=== PATIENT | male | born 1975 | race Caucasian/White ===

== ENCOUNTER 2018-03-03 21:49 | Inpatient (IN) | payer OTHER ==
[~2018-03-03] VITALS: Ht 188 cm; Wt 127.0 kg
[~2018-03-03 21:49] MED LIST: AMARYL4 MG PO; APAP650 PO; ASPIRIN EC81 M1; BENTYL 10 MG CA10 M1 PO; BENTYL 20 MG TA20 M1 PO; CITRATE OF MAG296 ML PO; COLESTID1 GM PO; EXCEDRIN MIGRA1 EAC1 PO; GLUCOPHAGE XR500 MG PO; GLYBURIDE 2.52.5 MG PO; HYDROCODONE-APA1 TA1 PO; HYDROXYZINE HCL25 M1 PO; JANUMET 50-1,01 EACH PO; JANUMET XR 1001 EACH; JANUMET XR 50-1 EAC1 PO; LIPITOR; LIPITOR40 MG PO; LISINOPRIL10 MG PO; LISINOPRIL20 MG PO; METFORMIN HCL500 MG PO; METOPROLOL; MIRALAX17 GM PO; NEURONTIN 300300 M1 PO; NICOTINE TRANSD21 M1 TRANSDERM; NORCO 5-325 TA1 EAC1 PO; NORCO 5-325 TA1 EACH PO; NORVASC5 MG PO; OXYCODONE HCL 55 MG PO; PHENERGAN 25 MG25 M1 PO; PROTONIX40 M1 PO; PROZAC 20 MG20 MG; PROZAC20 MG PO; QUINAPRIL; SEROQUEL 50 MG50 MG PO; TORADOL 10 MG T10 MG PO; TRAZODONE HCL100 MG PO; VITAMIN D 5050000 I1 PO; ZOFRAN ODT4 MG PO
[2018-03-03 22:02] VITALS: BP 214/114
[2018-03-03 22:30] LABS: ABSOLUTE BASOPHILS 0.1 thou/uL (0.0-0.2); ABSOLUTE EOSINOPHILS 0.1 thou/uL (0.0-0.7); ABSOLUTE LYMPHOCYTES 1.8 thou/uL (0.8-5.3); ABSOLUTE MONOCYTES 0.7 thou/uL (0.0-1.2); ABSOLUTE NEUTROPHILS 4.7 thou/uL (1.6-8.1); HEMATOCRIT 44.7 % (42.0-52.0); HEMOGLOBIN 15.4 gm/dL (14.0-18.0); LYMPHOCYTES 24.8 %; MCH 31.1 pg (26.0-34.0); MCHC 34.4 g/dL (28.0-37.0); MCV 90.5 fL (80.0-100.0); MONOCYTES 8.7 %; MPV 8.6 fl. (7.2-11.1); NUCLEATED RBCS 0 /100WBC; PLATELET COUNT* 228 thou/uL (150-400); POLYS 63.5 %; RBC 4.93 mil/uL (4.50-6.00); RDW-CV 14.4 % (10.5-14.5); WBC 7.5 thou/uL (4.0-11.0)
[2018-03-03 22:36] LABS: ANION GAP 9 mmol/L (7-16); BUN 9 mg/dL (7-18); CALCIUM 8.5 mg/dL (8.5-10.1); CHLORIDE 102 mmol/L (98-107); CO2 26 mmol/L (21-32); CREATININE 0.9 mg/dL (0.6-1.3); GLUCOSE 208 mg/dL (70-99); SODIUM 137 mmol/L (136-145)
[2018-03-03 22:37] LABS: APTT 31.9 Seconds (25.0-31.3); PROTIME 10.5 Seconds (9.20-11.50)
[2018-03-03 22:42] LABS: POTASSIUM 2.9 mmol/L (3.5-5.1)
[2018-03-03 22:46] LABS: ALBUMIN 3.4 g/dL (3.4-5.0); ALKALINE PHOSPHATASE 98 U/L (46-116); LIPASE 1053 U/L (73-393); NT-PRO BRAIN NAT PEPTIDE 202 pg/mL (<300); SGOT 17 U/L (15-37); SGPT 28 U/L (30-65); TOTAL BILIRUBIN 0.6 mg/dL (<0.1-1.0); TOTAL PROTEIN 7.2 g/dL (6.4-8.2); TROPONIN-I LEVEL <0.06 ng/mL (<0.06)
[2018-03-04] LABS: URINE BILIRUBIN NEGATIVE (Negative); URINE BLOOD NEGATIVE (Negative); URINE CLARITY CLEAR; URINE COLOR YELLOW; URINE GLUCOSE-RANDOM 2+ (Negative); URINE KETONES NEGATIVE (Negative); URINE LEUKOCYTES-REFLEX NEGATIVE (Negative); URINE NITRITE-REFLEX NEGATIVE (Negative); URINE PROTEIN NEGATIVE (Negative); URINE SPECIFIC GRAVITY <= 1.005 (1.005-1.030); URINE UROBILINOGEN 0.2 E.U./dl (0.2-1.0)
[2018-03-04 00:27] LABS: AMP/METHAMP Negative (Negative); BARBITURATES Negative (Negative); BENZODIAZEPINES Negative (Negative); COCAINE Negative (Negative); METHADONE Negative (Negative); OPIATES POSITIVE (Negative); PCP Negative (Negative); THC Negative (Negative)
[2018-03-04 01:44] VITALS: BP 200/100
--- NOTE | 2018-03-04 06:47 | NUR ---
PATIENT ARRIVED ON FLOOR FROM ER ABOUT 0200. PATIENT ADMISSION HISTORY AND ASSESSMENT COMPLETED CHARTED. IV FLUIDS WERE STARTED AT 150 ML/HR. PATIENT WAS GIVEN PAIN AND NAUSEA MEDICINE ONCE THIS SHIFT. WILL CONTINUE TO MONITOR.
[2018-03-04 07:50] VITALS: BP 102/57
--- NOTE | 2018-03-04 13:55 | NUR ---
Nutrition: Pt assessed for DX of pancreatitis - acute on chronic. H/o pancreatitis, DM, HTN, GERD. Labs: lipase 1053, alb 3.4, BG 208-113. Pt has had some nausea w/o vomiting. Wt: 280#. NPO. RD will follow for diet advancement and tolerance, labs. GOALS: advance diet to goal of Low Fat when pt able. Mild nutrition risk at this time. Will follow up 03/09/18.
--- NOTE | 2018-03-04 16:33 | EKG ---
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 : 1975 Requested By: Ehsan Hall Order Number: [id number] MD: Corby Wright Measurements Intervals [place] Rate: 67 P: 37 DC: 170 QRS: 4 QRSD: 108 T: 149 QT: 399 QTc: 422 Interpretive Statements Sinus rhythm Probable LVH with secondary repol abnrm Inferior infarct, old Baseline wander in lead(s) V6 Compared to ECG 09/04/2016 12:33:45 Myocardial infarct finding now present Sinus bradycardia no longer present Electronically Signed On 03-04-2018 16:33:18 CDT by Corby Wright [email or web address] <ELECTRONICALLY SIGNED> By: Corby Wrgiht MD, FACC 03/04/18 1633 30 30 Corby Wright MD, FAC /EPI
[2018-03-04 16:43] VITALS: BP 133/68
--- NOTE | 2018-03-04 16:53 | NUR ---
PATIENT GIVEN PRN FENTANYL AND ZOFRAN X 2 THIS SHIFT WITH GOOD RELIEF NOTED. IVF REMAINS INFUSING AT 150MLS/HR. UP AD JUAN. CLEAR LIQUID DIET ORDERED, TOLERATING. NPO AFTER MIDNIGHT FOR GI PROCEDURE TOMORROW. PATIENT AWARE OF PLAN OF CARE.
[2018-03-04 20:30] VITALS: BP 157/83
[2018-03-05 04:49] LABS: ALBUMIN 2.6 g/dL (3.4-5.0); ALKALINE PHOSPHATASE 81 U/L (46-116); ANION GAP 5 mmol/L (7-16); BUN 7 mg/dL (7-18); CALCIUM 7.9 mg/dL (8.5-10.1); CHLORIDE 108 mmol/L (98-107); CHOLESTEROL 151 mg/dL (<200); CO2 26 mmol/L (21-32); CREATININE 0.7 mg/dL (0.6-1.3); GLUCOSE 108 mg/dL (70-99); HDL CHOLESTEROL 21 mg/dL (>40); LDL CHOLESTEROL 106 mg/dL (<100); MAGNESIUM 1.8 mg/dL (1.8-2.4); POTASSIUM 3.4 mmol/L (3.5-5.1); SGOT 17 U/L (15-37); SGPT 20 U/L (30-65); SODIUM 139 mmol/L (136-145); TC:HDL 7.2 Ratio (Not establshd); TOTAL BILIRUBIN 0.5 mg/dL (<0.1-1.0); TOTAL PROTEIN 5.5 g/dL (6.4-8.2); TRIGLYCERIDE 124 mg/dL (<150); VLDL 25 mg/dL (<40)
[2018-03-05 05:32] LABS: SERUM ASSESSMENT CLEAR
--- NOTE | 2018-03-05 06:27 | NUR ---
PATIENT SLEPT MOST OF THE NIGHT. PATIENT WAS GIVEN PAIN MEDICINE TWICE THIS SHIFT. IV FLUIDS CONTINUE AT 150 ML/HR. PATIENT HAS BEEN NPO SINCE MIDNIGHT INCASE OF A PROCEDURE TODAY. WILL CONTINUE TO MONITOR.
[2018-03-05 09:56] VITALS: BP 150/90
--- NOTE | 2018-03-05 12:29 | NUR ---
SW met with pt to complete initial assessment, introduce self, and SW role. Pt alert, oriented. Pt lives at home with his . SW discussed insurance status with pt and he said that he had been denied for Medicaid when SW said that SW read that pt Medicaid was pending in August. SW provided resources/referrals for primary care doctor and other resources for basic and financial needs. Pt has a cane if needed. Pt had previously been connected with [facility] and [facility]. Pt did not express any other dc needs at this time. SW to continue to follow.
[2018-03-05 16:18] VITALS: BP 163/89
--- NOTE | 2018-03-05 18:30 | NUR ---
PATIENT HAS BEEN ALERT AND ORIENTED TODAY, VERY PLEASANT. UP AD JUAN IN ROOM. SOME PAIN TODAY THAT IS WELL CONTROLLED WITH IV PAIN MEDICATIONS. VITAL SIGNS HAVE BEEN STABLE ON ROOM AIR. TOLERATED DINNER WITH SOME PAIN AND NAUSEA BUT US TOLERABLE PER PATIENT. CALL LIGHT IS IN REACH, WILL CONTINUE TO MONITOR.
[2018-03-05 19:30] VITALS: BP 176/89
--- NOTE | 2018-03-06 04:43 | NUR ---
PATIENT REMAINS ALERT AND ORIENTED X4 THROUGHOUT SHIFT. VITAL SIGNS STABLE ON ROOM AIR. IV PATENT IN THE RIGHT AC INFUSING PER ORDERS. PAIN AND NAUSEA MANAGED WITH IV MEDICATION. TOLERATING DIET. ASSESSMENT COMPLETE CHARTED. RESTING COMFORTABLY THROUGHOUT THE NIGHT. TRANSFERS AD JUAN TO THE RESTOOM. REPOSITIONING SELF IN BED. HOURLY ROUNDING COMPLETE. CALL LIGHT WITHIN REACH. NURSING WILL CONTINUE TO MONITOR.
[2018-03-06 08:00] VITALS: BP 171/78
[2018-03-06] MEDS ORDERED: WELLBUTRIN 75 M75 M1 PO (09:04)
[2018-03-06 11:07] VITALS: BP 171/78
--- NOTE | 2018-03-06 14:10 | NUR ---
ASSUMED CARE THIS AM, NO DISTRESS NOTED, VSS, DENIES PAIN, SEE ASSESSMENT FOR DETAILS. DISCHARGE ORDERS RECEIVED, IV ACCESS REMOVED WITHOUT INCIDENT. DISCHARGE INSTRUCTIONS, F/U APPTS, PRESCRIPTIONS DISCUSSED WITH AND GIVEN TO PATIENT, DENIES QUESTIONS AT THIS TIME. PERSONAL EFFECTS GATHERED, ACCOUNTED FOR, IN COMPANY OF PATIENT, TRANSPORTED TO MAIN ENTRANCE VIA WHEELCHAIR IN STABLE CONDITION.
[2018-03-09 06:05] LABS: IgG 721 mg/dL (700-1600)
--- NOTE | 2018-03-22 11:23 | CON ---
[address] [address] CONSULTATION Name: BACILIO MILLER Room: [address] IN .R.#: [id number] Admission: 03/04/18 Attend Phys: Jam Smith MD Discharge: 03/06/18 Date of : 77 Report #: [id number] THIS REPORT FOR: //name// CC: Jam Smith [facility] physician/PCP DATE OF SERVICE: 03/04/2018 HISTORY OF PRESENT ILLNESS: The patient is a pleasant 42-year-old male with past medical history significant for recurrent episodes of pancreatitis, who is presenting with an episode of acute onset abdominal pain. The patient reports the pain started on Thursday. The patient reports the pain is stabbing, sharp in nature and severe in intensity. The pain is constant and interrupted by intermittent exacerbations. Usually the pain is exacerbated by eating or drinking. The patient reports nausea, but denies vomiting. The patient reports that he has had one episode of pancreatitis every year for the last 4-5 years. He had cholecystectomy performed 2 years back and since then, has had two more episodes of pancreatitis. PAST MEDICAL HISTORY: The patient has history of diabetes, hypertension, hyperlipidemia. PAST SURGICAL HISTORY: He had cholecystectomy two years back, had coronary artery bypass in the past and 2 cardiac stents placed. FAMILY HISTORY: There is no family history of pancreatic or GI related malignancies. SOCIAL HISTORY: The patient reports smoking 1-1/2 to 2 packs a day for the last 25 years. Denies alcohol or recreational drug use. REVIEW OF SYSTEMS: Comprehensive 10-point review of systems is negative except for what was mentioned above. PHYSICAL EXAMINATION: VITAL SIGNS: Temperature 37.1, pulse rate 84, respirations 20, blood pressure 133/68. GENERAL: The patient is alert, awake, oriented x 3. HEENT: Pupils are equal, round, reactive to light and accommodation. Mucous membranes are moist. There is no congestion. LUNGS: Clear to auscultation bilaterally. NECK: Supple. There is no supraclavicular lymphadenopathy. ABDOMEN: Soft. There is tenderness in the right upper quadrant and epigastric region. Bowel sounds are present. EXTREMITIES: Warm, well perfused. NEUROLOGIC: [place] [address] CONSULTATION Name: BACILIO MILLER Room: [address]#: [id number] Admission: 03/04/18 Attend Phys: Jam Smtih MD Discharge: 03/06/18 Date of : 77 Report #: [id number] SKIN: Warm and dry. LABORATORY DATA: Sodium 137, potassium 3.5, chloride 102, bicarbonate 26, BUN 9, creatinine 0.9, total bilirubin 0.6, AST 17, ALT 28, alkaline phosphatase 98, lipase 1053. Abdomen and pelvis CT, stranding around the pancreas consistent with pancreatitis. ASSESSMENT AND PLAN: This is a very pleasant 42-year-old male presenting with recurrent episodes of acute pancreatitis at least 2 since his last cholecystectomy. I would get IgG4 levels to rule out IgG4 related pancreatitis. An EUS would be recommended 4 weeks from today to evaluate the pancreas. Otherwise, continue conservative management of mild acute pancreatitis without any local complications. <ELECTRONICALLY SIGNED> By: Donald Barrientos MD 03/22/18 1123 1737 0047Donald Barrientos MD /nt
== END 2018-03-06 14:12 | disposition home or self-care (01) | DRG 439 ==
LOC: M.ERS 21:49 → M.3W 03-04 00:23 → M.TBA-ER 03-04 00:23 → M.3W 03-04 01:46
PROVIDERS: Internal Medicine; Internal Medicine Gastroenterology; Nurse Practitioner Family; ADMIT Internal Medicine
DX: K85.90 Acute pancreatitis without necrosis or infection, unspecified (principal); I50.32 Chronic diastolic (congestive) heart failure; K86.1 Other chronic pancreatitis; K21.9 Gastro-esophageal reflux disease without esophagitis; I11.0 Hypertensive heart disease with heart failure; E78.00 Pure hypercholesterolemia, unspecified; M16.12 Unilateral primary osteoarthritis, left hip; M17.12 Unilateral primary osteoarthritis, left knee; E11.40 Type 2 diabetes mellitus with diabetic neuropathy, unspecified; E78.5 Hyperlipidemia, unspecified; E11.65 Type 2 diabetes mellitus with hyperglycemia; E87.6 Hypokalemia; F17.210 Nicotine dependence, cigarettes, uncomplicated; Z71.6 Tobacco abuse counseling; Z95.5 Presence of coronary angioplasty implant and graft; Z95.1 Presence of aortocoronary bypass graft; Z90.49 Acquired absence of other specified parts of digestive tract; Z79.899 Other long term (current) drug therapy; Z79.84 Long term (current) use of oral hypoglycemic drugs; Z88.0 Allergy status to penicillin; Z23 Encounter for immunization

== ENCOUNTER 2018-05-15 00:15 | Emergency (ER) | payer OTHER ==
[~2018-05-15] VITALS: Ht 188 cm; Wt 127.0 kg
[~2018-05-15 00:15] MED LIST changes: +WELLBUTRIN 75 M75 M1 PO
[2018-05-15 00:57] LABS: ABSOLUTE EOSINOPHILS 0.1 thou/uL (0.0-0.7); ABSOLUTE LYMPHOCYTES 2.2 thou/uL (0.8-5.3); ABSOLUTE MONOCYTES 0.6 thou/uL (0.0-1.2); ABSOLUTE NEUTROPHILS 3.1 thou/uL (1.6-8.1); BASOPHILS 0.7 %; EOSINOPHILS 1.9 %; HEMATOCRIT 45.2 % (42.0-52.0); HEMOGLOBIN 15.4 gm/dL (14.0-18.0); LYMPHOCYTES 36.1 %; MCH 31.3 pg (26.0-34.0); MCV 92.1 fL (80.0-100.0); MONOCYTES 10.5 %; NUCLEATED RBCS 0 /100WBC; PLATELET COUNT* 178 thou/uL (150-400); POLYS 50.8 %; RBC 4.91 mil/uL (4.50-6.00); RDW-CV 14.3 % (10.5-14.5); WBC 6.1 thou/uL (4.0-11.0)
[2018-05-15 01:00] LABS: ANION GAP 8 mmol/L (7-16); BUN 10 mg/dL (7-18); CALCIUM 8.4 mg/dL (8.5-10.1); CHLORIDE 103 mmol/L (98-107); CO2 26 mmol/L (21-32); GLUCOSE 332 mg/dL (70-99); POTASSIUM 3.1 mmol/L (3.5-5.1); SODIUM 137 mmol/L (136-145)
[2018-05-15 01:06] LABS: PROTIME 10.2 Seconds (9.20-11.50)
[2018-05-15 01:11] LABS: ALBUMIN 3.4 g/dL (3.4-5.0); ALKALINE PHOSPHATASE 98 U/L (46-116); LIPASE 223 U/L (73-393); NT-PRO BRAIN NAT PEPTIDE 161 pg/mL (<300); SGOT 18 U/L (15-37); SGPT 34 U/L (30-65); TOTAL BILIRUBIN 0.3 mg/dL (<0.1-1.0); TOTAL PROTEIN 6.8 g/dL (6.4-8.2); TROPONIN-I LEVEL <0.06 ng/mL (<0.06)
[2018-05-15 01:24] LABS: URINE BILIRUBIN NEGATIVE (Negative); URINE BLOOD NEGATIVE (Negative); URINE CLARITY CLEAR; URINE COLOR STRAW; URINE GLUCOSE-RANDOM 3+ (Negative); URINE KETONES NEGATIVE (Negative); URINE LEUKOCYTES-REFLEX NEGATIVE (Negative); URINE NITRITE-REFLEX NEGATIVE (Negative); URINE PROTEIN NEGATIVE (Negative); URINE UROBILINOGEN 0.2 E.U./dl (0.2-1.0)
[2018-05-15] MEDS ORDERED: PRINIVIL20 MG PO (03:49)
[2018-05-15] MEDS ORDERED: WELLBUTRIN 75 M75 M1 PO (03:49)
[2018-05-15] MEDS ORDERED: COLESTIPOL HCL1 G1 PO (03:49)
[2018-05-15] MEDS ORDERED: METFORMIN HCL500 MG PO (03:49)
[2018-05-15 05:10] VITALS: BP 135/76
--- NOTE | 2018-05-17 10:16 | EKG ---
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: : 1975 Requested By: Urvashi Read Order Number: [id number] MD: Ihsan Ruiz Measurements Intervals [place] Rate: 75 P: 35 VT: 175 QRS: 15 QRSD: 112 T: 195 QT: 363 QTc: 406 Interpretive Statements Sinus rhythm Probable LVH with secondary repol abnrm Inferior infarct, old Anterior ST elevation, probably due to LVH Compared to ECG 03/03/2018 22:31:56 Myocardial infarct finding still present Electronically Signed On 05-17-2018 10:16:08 SECOND FACING BASTER by Ihsan Ruiz [email or web address] <ELECTRONICALLY SIGNED> By: Ihsan Ruiz MD, FACC 05/17/18 [facility] 0020 0020 Ihsan Ruiz MD, [facility] /EPI
== END 2018-05-15 05:10 | disposition home or self-care (01) ==
LOC: M.ERS 00:15
PROVIDERS: Emergency Medicine
DX: R07.89 Other chest pain (principal); M16.12 Unilateral primary osteoarthritis, left hip; M17.12 Unilateral primary osteoarthritis, left knee; E11.9 Type 2 diabetes mellitus without complications; I11.0 Hypertensive heart disease with heart failure; I50.32 Chronic diastolic (congestive) heart failure; E11.40 Type 2 diabetes mellitus with diabetic neuropathy, unspecified; F17.210 Nicotine dependence, cigarettes, uncomplicated; Z90.49 Acquired absence of other specified parts of digestive tract; Z95.5 Presence of coronary angioplasty implant and graft; Z88.0 Allergy status to penicillin

== ENCOUNTER 2018-08-06 22:44 | Emergency (ER) | payer OTHER ==
[~2018-08-06] VITALS: Ht 188 cm; Wt 124.7 kg
[~2018-08-06 22:44] MED LIST changes: +ADULT LOW DOSE81 MG PO; +COLESTIPOL HCL1 G1 PO; +CYCLOBENZAPRINE10 MG PO; +IBUPROFEN 400400 M2 PO; +PRAVACHOL40 MG PO; +PRINIVIL20 MG PO; +[UNRECOGNIZED DRUG - OTHER] TOP
[2018-08-06 23:24] LABS: ABSOLUTE BASOPHILS 0.1 thou/uL (0.0-0.2); ABSOLUTE EOSINOPHILS 0.1 thou/uL (0.0-0.7); ABSOLUTE LYMPHOCYTES 2.5 thou/uL (0.8-5.3); ABSOLUTE MONOCYTES 0.9 thou/uL (0.0-1.2); HEMOGLOBIN 15.9 gm/dL (14.0-18.0); MPV 8.7 fl. (7.2-11.1); NUCLEATED RBCS 0 /100WBC; WBC 10.4 thou/uL (4.0-11.0)
[2018-08-06 23:34] LABS: ABSOLUTE NEUTROPHILS 6.9 thou/uL (1.6-8.1); APTT 29.4 Seconds (25.0-31.3); BASOPHILS 0.6 %; EOSINOPHILS 0.9 %; LYMPHOCYTES 24.3 %; MCH 31.1 pg (26.0-34.0); MCHC 34.6 g/dL (28.0-37.0); MONOCYTES 8.3 %; PLATELET COUNT* 195 thou/uL (150-400); POLYS 65.9 %; PROTIME 10.4 Seconds (9.20-11.50); RBC 5.11 mil/uL (4.50-6.00); RDW-CV 14.4 % (10.5-14.5)
[2018-08-06 23:37] LABS: ANION GAP 6 mmol/L (7-16); BUN 10 mg/dL (7-18); CHLORIDE 101 mmol/L (98-107); CO2 32 mmol/L (21-32); CREATININE 0.9 mg/dL (0.6-1.3); GLUCOSE 231 mg/dL (70-99); SODIUM 139 mmol/L (136-145); TROPONIN-I LEVEL <0.06 ng/mL (<0.06)
[2018-08-06 23:39] LABS: ALBUMIN 3.9 g/dL (3.4-5.0); ALKALINE PHOSPHATASE 102 U/L (46-116); NT-PRO BRAIN NAT PEPTIDE 209 pg/mL (<300); SGOT 23 U/L (15-37); SGPT 35 U/L (30-65); TOTAL BILIRUBIN 0.6 mg/dL (<0.1-1.0); TOTAL PROTEIN 7.6 g/dL (6.4-8.2)
[2018-08-06] MEDS ORDERED: POTASSIUM20 PO ×2 (23:39→23:40)
[2018-08-06] MEDS ORDERED: NORCO 5-325 TA1 EACH PO (23:39)
[2018-08-07] VITALS: BP 174/96
--- NOTE | 2018-08-07 12:02 | EKG ---
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: Claudio FIELD : 1975 Requested By: Tiffani Angelo Order Number: [id number] MD: Dillon Santiago Measurements Intervals [place] Rate: 89 P: 28 ID: 170 QRS: 20 QRSD: 111 T: 256 QT: 360 QTc: 439 Interpretive Statements Sinus rhythm LVH with secondary repolarization abnormality Inferior infarct, old Compared to ECG 07/28/2018 16:49:44 Left ventricular hypertrophy now present Early repolarization now present Possible ischemia no longer present Myocardial infarct finding still present Electronically Signed On 08-07-2018 12:01:52 CUSTOMER SERVICES COORDINATOR by Dillon Santiago [email or web address] <ELECTRONICALLY SIGNED> By: Dillon Santiago MD, MERGED WITH [facility] 08/07/18 1201 231 231 Dillon Santiago MD, FAC /EPI
== END 2018-08-07 00:09 | disposition home or self-care (01) ==
LOC: M.ERS 22:44
PROVIDERS: Physician Assistant
DX: E87.6 Hypokalemia (principal); E11.65 Type 2 diabetes mellitus with hyperglycemia; R60.0 Localized edema; F17.210 Nicotine dependence, cigarettes, uncomplicated; I11.0 Hypertensive heart disease with heart failure; I50.32 Chronic diastolic (congestive) heart failure; E78.00 Pure hypercholesterolemia, unspecified; M17.12 Unilateral primary osteoarthritis, left knee; M16.12 Unilateral primary osteoarthritis, left hip; E11.43 Type 2 diabetes mellitus with diabetic autonomic (poly)neuropathy; Z88.0 Allergy status to penicillin; Z90.49 Acquired absence of other specified parts of digestive tract; Z95.5 Presence of coronary angioplasty implant and graft